=== PATIENT | male | born 1985 | race Caucasian/White ===

== ENCOUNTER 2017-12-28 14:26 | Emergency (ER) | payer MEDICAID, OTHER ==
[2017-12-28] MEDS ORDERED: LIDOCAINE 1%/EPINEPHRINE INJ 20 ML VIAL INJ ONE (14:32)
[2017-12-28] MEDS ORDERED: MORPHINE SULFATE 10 MG/ML INJ IV ONE (14:33)
[2017-12-28] MEDS ORDERED: DIPH/PERTUSS(ACELL)/TETANUS VAC/PF 0.5 ML SYR (>=10YO) IM ONE (14:33)
[2017-12-28 14:43] VITALS: BP 112/58
[2017-12-28] MEDS ORDERED: FENTANYL CITRATE INJ/PF 100 MCG/2 ML AMPUL IV ONE (15:30)
--- NOTE | 2017-12-28 15:47 | ER Document Report ---
ED General - General Chief Complaint: Laceration Stated Complaint: RIGHT ARM LACERATION Time Seen by Provider: 12/28/17 14:32 Mode of Arrival: Ambulatory TRAVEL OUTSIDE OF THE [place] 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 He was working on an engine at which time he pulled his arm back and caught it underneath the costello of a car, he noted severe bleeding immediately thereafter for which he placed a tourniquet in place. EMS subsequently picked him up from the [facility] office after he presented there. On arrival here he had a tourniquet in place which had been there for approximately 60 minutes. He denies any other health problems save a shoulder reconstruction in the past. 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 Is allergic to penicillin and anxiety medicine. No other complaints at this time. - Related Data Allergies/Adverse Reactions: alprazolam [From Xanax] Allergy (Verified 12/28/17 14:54) amoxicillin Allergy (Verified 12/28/17 14:54) Penicillins Allergy (Verified 12/28/17 14:54) Past Medical History - General Information source: Patient - Social History Smoking Status: Current Every Day Smoker Chew tobacco use (# tins/day): No Frequency of alcohol use: None Drug Abuse: None Family History: None Patient has suicidal ideation: No Patient has homicidal ideation: No Renal/ Medical History: Denies: Hx Peritoneal Dialysis Past Surgical History: Reports: Hx Orthopedic Surgery - right shoulder, Hx Tonsillectomy Review of Systems - Review of Systems -: Yes All other systems reviewed and negative Physical Exam - Vital signs Vitals: Temp Pulse Resp BP Pulse Ox 98.0 F 76 18 112/58 L 95 12/28/17 14:32 12/28/17 14:32 12/28/17 14:32 12/28/17 14:32 12/28/17 14:32 - General General appearance: Anxious In distress: Mild - HEENT Head: Normocephalic Eyes: Normal Conjunctiva: Normal Cornea: Normal Extraocular movements intact: Yes Eyelashes: Normal Pupils: PERRL - Respiratory Respiratory status: No respiratory distress Chest status: Nontender Breath sounds: Normal Chest palpation: Normal - Cardiovascular Rhythm: Regular Heart sounds: Normal auscultation Murmur: No - Abdominal Inspection: Normal Distension: No distension - Back Back: Normal - Extremities General lower extremity: Normal inspection, Nontender, Normal ROM, Normal strength Shoulder: Normal Arm: Normal Forearm: Other - The right forearm demonstrates a 6 cm flap-like laceration just just proximal to the wrist on the volar aspect of the forearm. It obviously violates the subcutaneous tissue, there is no obvious tendon involvement, there is no vascular involvement, the radial artery has visible activity in the base of the wound bed without any active bleeding. Hand: Other - The right hand demonstrates brisk capillary refill in all 5 digits There is normal sensation in the ulnar distribution of the hand Pinpoint two-point discrimination is lost on the ulnar aspect of the right thumb as well as the radial aspect of the right index finger, there is intact sensation to deep touch, intact proprioception of all 5 digits There is intact range of motion at the PIP, MIP, DIP, of all 5 digits The thumb demonstrates 5 out of 5 strength, index finger demonstrates 5 out of 5 strength, third digit fourth digit fifth digit 5 out of 5 strength - Neurological Neuro grossly intact: Yes Cognition: Normal Orientation: AAOx4 [place] Coma Scale Eye Opening: Spontaneous [place] Coma Scale Verbal: Oriented Jaylan Coma Scale Motor: Obeys Commands [place] Coma Scale Total: 15 Speech: Normal Cranial nerves: Normal Cerebellar coordination: Normal Motor strength normal: LUE, RUE, LLE, RLE Notes: Markedly diminished two-point discrimination in the right thumb and index finger Intact pinprick at the base of the right thumb and right index finger - Psychological Associated symptoms: Normal affect Course - Re-evaluation Re-evalutation: 32-year-old man that presents for evaluation of a wound involving the right forearm. On examination the wound is hemostatic at this time with direct pressure. He appears overall well otherwise There is no obvious vascular injury, he has intact range of motion at the shoulder, elbow, wrist and all 5 digits of the hand. There is a sensory deficit involving the thumb as well as the index finger. There is intact range of motion however in all 5 digits. Spoke to the on-call orthopedic surgeon Dr. Rfaal YORK. He notes that he will follow-up this patient on Sunday as this is not emerge sensory deficit and likely represents some potential small neurologic involvement. We will plan to repair this wound primarily, will be performed in a layered fashion. Upon appropriate analgesia and administration of copious lidocaine wound was explored free of blood under a well lit field The flexor tendons are still deep to what appears to be the base of the wound, there is visible activity however. There is normal range of motion in all 5 digits. Because this patient has what appears to be a potential deficit we will plan for splinting in place following appropriate wound closure. We will administer prophylactic antibiotic. We will administer prophylactic tetanus. Will plan for patient to undergo follow-up in [address] york in clinic at 8 AM. 12/29/17 00:29 - Vital Signs Vital signs: Temp Pulse Resp BP Pulse Ox 98.0 F 76 18 112/58 L 95 12/28/17 14:32 12/28/17 14:32 12/28/17 14:32 12/28/17 14:32 12/28/17 14:32 Procedures - Immobilization Right Arm Pre-Proc Neuro Vasc Exam: Abnormal - Sensory deficit in the thumb and index finger Immobilizer type: Sugar tong Performed by: PCT Post-Proc Neuro Vasc Exam: Abnormal, Unchanged from pre-exam Alignment checked and good: Yes - Laceration/Wound Repair Right Volar Wrist Time completed: 16:20 Wound length (cm): 6 Wound's Depth, Shape: Into muscle, Irregular, Flap Laceration pre-procedure: Betadine prep applied Anesthetic type: 1% Lidocaine w/epi Wound explored: Clean, No foreign body removed, Contaminated Wound Debrided: Minimal Wound Repaired With: Sutures Suture Size/Type: 4:0 Number of Sutures: 6 Layer Closure?: Yes Deep Layer Suture Size/Type: 4:0 Number Deep Layer Sutures: 3 Post-procedure wound care: Sterile dressing applied, Splint applied Post-procedure NV exam normal: No - previously described deficit in the index and thumb Complications: No Discharge - Discharge Clinical Impression: Nerve injury, Tetanus toxoid vaccination administered at current visit Laceration of wrist Qualifiers: Encounter type: initial encounter Laterality: right Qualified Code(s): S61.511A - Laceration without foreign body of right wrist, initial encounter Condition: Good Disposition: HOME, SELF-CARE Instructions: Antibiotic Ointment Protection ([facility]), Laceration Care ([facility]), Oral Narcotic Medication ([facility]), Prophylactic Antibiotic ([facility]), Soap Cleansing ( [facility]), Tetanus Immunization Given ([facility]) Additional Instructions: He was seen today in the emergency department for the wound on your wrist. It appears that your nerve has been injured. You need to follow-up on Sunday with Dr. York as directed. Use the medication prescribed you only as needed. Return for worsening fevers, chills, drainage from the wound, if you are unable to feel your hand or your symptoms change. Use the antibiotic prescribed to you daily. Do gentle soap and water over top of the wound after 24 hours of keeping it dry. Keep the splint in place and do not remove it. Prescriptions: Cephalexin Monohydrate [Keflex 500 mg Capsule] 500 mg PO Q6H 10 Days #40 capsule Hydrocodone/Acetaminophen [Emigrant 5-325 mg Tablet] 1 tab PO TID PRN #9 tablet PRN Reason: Forms: Smoking Cessation Education Referrals: RAFAL YORK DO [ACTIVE STAFF] - Follow up in 3-5 days
== END 2017-12-28 17:08 | disposition home or self-care (01) ==
LOC: ER 14:26
DX: S51.811A Laceration without foreign body of right forearm, initial encounter (principal); S66.921A Laceration of unspecified muscle, fascia and tendon at wrist and hand level, right hand, initial encounter; T14.8XXA Other injury of unspecified body region, initial encounter; W45.8XXA Other foreign body or object entering through skin, initial encounter; Y93.89 Activity, other specified; F17.200 Nicotine dependence, unspecified, uncomplicated; Z88.0 Allergy status to penicillin; Z88.8 Allergy status to other drugs, medicaments and biological substances; Z23 Encounter for immunization
CPT/HCPCS: 12032; 99283; 90471; 96374; 96375; 90715; J3010; J3490; J2270

== ENCOUNTER 2019-03-17 10:15 | Emergency (ER) | payer OTHER ==
[2019-03-17 11:30] LABS: ABSOLUTE EOSINOPHILS # (AUTO) 0.1 10^3/uL (0.0-0.6); ABSOLUTE LYMPHOCYTES (AUTO) 2.5 10^3/uL (0.5-4.7); ABSOLUTE MONOCYTES (AUTO) 0.4 10^3/uL (0.1-1.4); ABSOLUTE NEUT (AUTO) 2.7 10^3/uL (1.7-8.2); BASOPHILS % (AUTO) 0.6 % (0-2); EOSINOPHILS % (AUTO) 2.5 % (0-6); MEAN CORPUSCULAR HEMOGLOBIN 29.7 pg (27.0-33.4); MEAN CORPUSCULAR HGB CONC 35.1 g/dL (32.0-36.0); MEAN CORPUSCULAR VOLUME 85 fl (80-97); MONOCYTES % (AUTO) 7.7 % (3-13); PLATELET COUNT 204 10^3/uL (150-450); RED BLOOD COUNT 4.37 10^6/uL (4.35-5.55); SEGMENTED NEUTROPHILS % (AUTO) 46.2 % (42-78); TOTAL CELLS COUNTED % (AUTO) 100 %; WHITE BLOOD COUNT 5.8 10^3/uL (4.0-10.5)
[2019-03-17 11:35] LABS: ALBUMIN 3.7 g/dL (3.5-5.0); ALKALINE PHOSPHATASE 57 U/L (38-126); ANION GAP 6 (5-19); ASPARTATE AMINO TRANSFERASE 28 U/L (17-59); BILIRUBIN,TOTAL 0.3 mg/dL (0.2-1.3); BLOOD UREA NITROGEN 18 mg/dL (7-20); CALCIUM 9.1 mg/dL (8.4-10.2); CARBON DIOXIDE 29 mmol/L (22-30); CHLORIDE 101 mmol/L (98-107); GLUCOSE 80 mg/dL (75-110); POTASSIUM 4.2 mmol/L (3.6-5.0); TOTAL PROTEIN 6.6 g/dL (6.3-8.2)
[2019-03-17 11:40] LABS: ACETAMINOPHEN < 10 ug/mL (10-30); ALCOHOL < 10 mg/dL (NONE DETECTED); SALICYLATE < 1.0 mg/dL (2.0-20.0)
[2019-03-17 11:43] VITALS: BP 139/93
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
[2019-03-17 12:19] LABS: APPEARANCE,URINE CLEAR; BILIRUBIN,URINE NEGATIVE (NEGATIVE); COLOR,URINE YELLOW; GLUCOSE, URINE NEGATIVE (NEGATIVE); KETONES,URINE NEGATIVE (NEGATIVE); LEUKOCYTE ESTERASE,URINE NEGATIVE (NEGATIVE); NITRITE,URINE NEGATIVE (NEGATIVE); PROTEIN,URINE NEGATIVE (NEGATIVE); UROBILINOGEN,URINE NEGATIVE mg/dL (<2.0)
[2019-03-17 12:34] LABS: URINE BARBITURATES SCREEN NEGATIVE; URINE BENZODIAZEPINES SCREEN NEGATIVE; URINE COCAINE SCREEN NEGATIVE; URINE MARIJUANA (THC) SCREEN NEGATIVE; URINE METHADONE SCREEN NEGATIVE; URINE PHENCYCLIDINE SCREEN NEGATIVE
--- NOTE | 2019-03-17 15:13 | EKG REPORT ---
SEVERITY:- NORMAL ECG - SINUS RHYTHM : Confirmed by: Maria Victoria Rodney MD 17-Mar-2019 15:12:33
== END 2019-03-17 11:46 | disposition left against medical advice (07) ==
LOC: ER 10:15
DX: Z53.21 Procedure and treatment not carried out due to patient leaving prior to being seen by health care provider (principal)
CPT/HCPCS: 36415; 80053; 80307; 81001; 85025; 93005; 93010